=== PATIENT | female | born 1975 | race Caucasian/White ===

== ENCOUNTER 2019-05-23 11:28 | Emergency (ER) | payer OTHER ==
[2019-05-23 11:53] VITALS: BP 115/82
--- NOTE | 2019-05-23 12:19 | UC ---
Back Pain HPI - HPI Summary HPI Summary: year old female with h/o back strains in past, no surgeries, dxd'd with scoliosis as a child, but later told after MRI none seen. Yesterday while helping change tires, felt a pop in her back with immediate pain, lower back, L > R. Tried ice, rest, heat, warm showers without relief. Pain meds: Alleve- minimal benefit. no numbness, tingling, no loss of bowel or bladder function. + ambulatory, however painful. Currently working at crop or grain farmworker. no DM. PMH - + for elevated cholestrol. - History of Current Complaint Chief Complaint: UCBackPain Stated Complaint: BACK PAIN Time Seen by Provider: 05/23/19 12:07 Hx Obtained From: Patient Hx Last Menstrual Period: ABLATION Onset/Duration: Sudden Onset, Lasting Days Timing: Constant Severity Initially: Severe Severity Currently: Severe Pain Intensity: 8 Pain Scale Used: 0-10 Numeric Back Pain: Is Discrete @ - lower back Character: Aching, Spasmodic, Stiffness Aggravating Factor(s): Movement, Lifting, Walking Alleviating Factor(s): Position Associated Signs And Symptoms: Positive: Pain with Weight Bearing. Negative: Fever, Weakness, Numbness, Weight Loss - Allergies/Home Medications Allergies/Adverse Reactions: Allergies Allergy/AdvReac Type Severity Reaction Status Date / Time No Known Allergies Allergy Verified 05/23/19 11:53 Home Medications: Home Medications Citalopram TAB* [Celexa TAB*] 1 tab PO DAILY 05/23/19 [History Confirmed ] Naproxen Sodium [Aleve] 1 tab PO ONCE 05/23/19 [History Confirmed 05/23/19] buPROPion SR TAB* [Wellbutrin SR TAB*] 1 tab PO DAILY 05/23/19 [History Confirmed 05/23/19] PMH/Surg Hx/FS Hx/Imm Hx Previously Healthy: Yes - Surgical History Surgical History: Yes Surgery Procedure, Year, and Place: ABLATION. BILATERAL EAR TUBES. tubal ligation 1998 - Family History Known Family History: Positive: Other - cancer, Non-Contributory - Social History Alcohol Use: None Substance Use Type: None Smoking Status (MU): Heavy Every Day Tobacco Smoker Amount Used/How Often: 1-2 PPD Review of Systems All Other Systems Reviewed And Are Negative: Yes Constitutional: Positive: Negative Musculoskeletal: Positive: Arthralgia, Decreased ROM, Myalgia Neurological: Positive: Negative. Negative: Weakness, Paresthesia Is Patient Immunocompromised?: No Physical Exam Triage Information Reviewed: Yes Appearance: Well-Appearing, Well-Nourished, Pain Distress - moderate Vital Signs: Initial Vital Signs Temp 98.3 F 05/23/19 11:48 Pulse 95 05/23/19 11:48 Resp 18 05/23/19 11:48 BP 115/82 05/23/19 11:48 Pulse Ox 98 05/23/19 11:48 Vital Signs Reviewed: Yes Eyes: Positive: Conjunctiva Clear Neck: Positive: Supple, Nontender, No Lymphadenopathy. Negative: Nuchal Rigidity, Enlarged Nodes @ Abdomen Description: Negative: CVA Tenderness (R), CVA Tenderness (L) Musculoskeletal: Positive: ROM Intact, No Edema, Other: - decreased FF at hips due to pain, + pain with extension. able to stand on toes, heels without prob , neg rhomberg. Neurological: Positive: Alert, Other: - SITLT b/l LEs. normal UE motions Patellar reflex 2+ b/l Psychological Exam: Normal Skin Exam: Normal Back Pain Course/Dx - Differential Dx/Diagnosis Differential Diagnosis/HQI/PQRI: Strain, Sprain Provider Diagnosis: Low back strain Discharge ED - Sign-Out/Discharge Documenting (check all that apply): Patient Departure All imaging exams completed and their final reports reviewed: No Studies - Discharge Plan Condition: Good Disposition: HOME Prescriptions: predniSONE [Prednisone 20 MG TAB] 40 mg PO DAILY #6 tablet Patient Education Materials: Low Back Strain (ED), Core Strengthening Exercises (GEN), Lower Back Exercises (ED) Forms: *Work Release Referrals: Norman Echavarria NP [Primary Care Provider] - Additional Instructions: Lower Back Strain: - Prednisone 40mg daily 3 days to decrease pain, inflammation. DO NOT TAKE motrin, alleve while taking this medication - Tylenol OK to take while on prednisone - Increase rest, relaxation x 2 days. - Begin gentle exercises in 2-3 days to help stretch, strengthen area. - Go to ER with numbness, tingling in lower legs, loss of bowel, bladder function, difficulty walking. - Work note given. - Billing Disposition and Condition Condition: GOOD Disposition: Home
== END 2019-05-23 12:33 | disposition home or self-care (01) ==
LOC: UCCORT 11:28
DX: S39.012A Strain of muscle, fascia and tendon of lower back, initial encounter (principal); X50.0XXA Overexertion from strenuous movement or load, initial encounter; Y93.89 Activity, other specified; Y92.9 Unspecified place or not applicable; F17.210 Nicotine dependence, cigarettes, uncomplicated
CPT/HCPCS: 99212; G0463